=== PATIENT | female | born 1995 | race Caucasian/White ===

== ENCOUNTER 2020-08-10 11:00 | Observation (INO) | payer MEDICAID, SELFPAY ==
[~2020-08-10] VITALS: Ht 157.5 cm; Wt 69.9 kg
[2020-08-10] MEDS ORDERED: NACL 0.9% 1,000 ML IV SCH (12:05)
== END 2020-08-10 15:30 | disposition home or self-care (01) ==
LOC: MLD 11:00
PROVIDERS: ADMIT Obstetrics & Gynecology; ATTEND Obstetrics & Gynecology
DX: O26.893 Other specified pregnancy related conditions, third trimester (principal); Z20.828 Contact with and (suspected) exposure to other viral communicable diseases; R10.9 Unspecified abdominal pain; R07.89 Other chest pain; Z3A.35 35 weeks gestation of pregnancy
CPT/HCPCS: 59025; 81000; 87426; 93005; 96365; G0378; J0696; J7060

== ENCOUNTER 2020-08-21 10:29 | Observation (INO) | payer MEDICAID ==
[~2020-08-21] VITALS: Ht 157.5 cm; Wt 69.9 kg
[2020-08-21] MEDS ORDERED: LACTATED RINGERS 1,000 ML IV SCH (11:00)
[2020-08-21] MEDS ORDERED: MORPHINE SULFATE 4 MG/ML SYR IVP SCH (11:15)
[2020-08-21 11:32] VITALS: BP 103/67
== END 2020-08-21 15:30 | disposition home or self-care (01) ==
LOC: MFCC 10:29
PROVIDERS: ADMIT Obstetrics & Gynecology; ATTEND Obstetrics & Gynecology
DX: O26.893 Other specified pregnancy related conditions, third trimester (principal); R10.9 Unspecified abdominal pain; O99.891 Other specified diseases and conditions complicating pregnancy; M54.9 Dorsalgia, unspecified; Z3A.37 37 weeks gestation of pregnancy
CPT/HCPCS: 59025; 81000; 96361; 96374; G0378; J2270; J7120

== ENCOUNTER 2020-08-29 01:46 | Inpatient (IN) | payer MEDICAID, SELFPAY ==
[2020-08-29] MEDS ORDERED: LACTATED RINGERS 1,000 ML IV SCH (02:45)
[2020-08-29] MEDS ORDERED: OXYTOCIN 10 UNITS/ML VIAL IM SCH (02:45)
[2020-08-29] MEDS ORDERED: METHYLERGONOVINE 0.2 MG/ML AMP IM PRN (02:45)
[2020-08-29] MEDS ORDERED: MORPHINE SULFATE 2 MG/ML SYR IVP PRN (02:45)
[2020-08-29] MEDS ORDERED: CARBOPROST 250 MCG/ML AMP IM PRN (02:45)
[2020-08-29 03:36] LABS: APPEARANCE,URINE CLEAR (CLEAR); BILIRUBIN,URINE NEGATIVE (NEGATIVE); BLOOD, URINE NEGATIVE (NEGATIVE); COLOR,URINE YELLOW (YELLOW); LEUKOCYTE ESTERASE ,URINE 2+ (NEGATIVE); NITRITE, URINE NEGATIVE (NEGATIVE); UGLUCOSE NEGATIVE (NEGATIVE)
[2020-08-29 03:40] LABS: BASOPHILS % (AUTO) 0.6 % (0.0-2.0); EOSINOPHILS # (AUTO) 0.1 K/uL (0-0.4); HEMATOCRIT 29.5 % (36-48); HEMOGLOBIN 9.8 g/dL (12.0-16.0); LYMPHOCYTES # (AUTO) 1.7 K/uL (2.5-16.5); LYMPHOCYTES % (AUTO) 24.8 % (20.5-51.1); MEAN CORPUSCULAR HEMOGLOBIN 27 pg (27-31); MEAN CORPUSCULAR HGB CONC 33 g/dL (33-37); MEAN CORPUSCULAR VOLUME 81.6 fL (80-94); MONOCYTES # (AUTO) 0.5 K/uL (0.8-1.0); MONOCYTES % (AUTO) 7.3 % (1.7-9.3); NEUTROPHILS # (AUTO) 4.6 K/uL (1.8-7.7); NEUTROPHILS % (AUTO) 66.3 % (42.2-75.2); PLATELET COUNT (AUTO) 132 K/uL (140-450); RED BLOOD CELL COUNT(AUTO) 3.61 MIL/uL (4.20-5.40); RED CELL DISTRIBUTION WIDTH 15.5 % (11.6-13.7)
[2020-08-29 03:46] LABS: ANION GAP 17.3 (8-16); CARBON DIOXIDE 21.9 mmol/L (21-32); CREATININE 0.5 mg/dL (0.6-1.3); POTASSIUM 4.2 mmol/L (3.5-5.1)
[2020-08-29] MEDS ORDERED: MORPHINE SULFATE 10 MG/ML VIAL ONE (03:46)
[2020-08-29 03:52] LABS: ALBUMIN 2.9 g/dL (3.4-5.0); TOTAL BILIRUBIN 0.6 mg/dL (0.0-1.0)
[2020-08-29 03:55] VITALS: BP 109/64
[2020-08-29 04:00] LABS: RBC,URINE 0-5 /HPF (0-5)
== END 2020-08-29 09:20 | disposition home or self-care (01) | DRG 566 ==
LOC: MLD 01:46 → OBSVTOIN 01:46 → MFCC 02:38
PROVIDERS: ADMIT Obstetrics & Gynecology; ATTEND Obstetrics & Gynecology
DX: O62.4 Hypertonic, incoordinate, and prolonged uterine contractions (principal); Z20.828 Contact with and (suspected) exposure to other viral communicable diseases; Z3A.37 37 weeks gestation of pregnancy
CPT/HCPCS: 36415; 80053; 81001; 85025; 86592; 86886; 86900; 86901; 87086; J2270

== ENCOUNTER 2020-08-31 17:48 | Inpatient (IN) | payer MEDICAID, SELFPAY ==
[~2020-08-31] VITALS: Ht 157.5 cm; Wt 65.8 kg
[2020-08-31] MEDS ORDERED: METHYLERGONOVINE 0.2 MG/ML AMP IM PRN (18:00)
[2020-08-31] MEDS ORDERED: CARBOPROST 250 MCG/ML AMP IM PRN (18:00)
[2020-08-31 18:29] LABS: BASOPHILS % (AUTO) 0.4 % (0.0-2.0); EOSINOPHILS # (AUTO) 0.1 K/uL (0-0.4); EOSINOPHILS % (AUTO) 1.1 % (0.0-4.0); HEMATOCRIT 29.5 % (36-48); LYMPHOCYTES # (AUTO) 1.4 K/uL (2.5-16.5); LYMPHOCYTES % (AUTO) 21.5 % (20.5-51.1); MEAN CORPUSCULAR HEMOGLOBIN 27 pg (27-31); MEAN CORPUSCULAR HGB CONC 34 g/dL (33-37); MONOCYTES # (AUTO) 0.4 K/uL (0.8-1.0); MONOCYTES % (AUTO) 6.4 % (1.7-9.3); NEUTROPHILS # (AUTO) 4.7 K/uL (1.8-7.7); NEUTROPHILS % (AUTO) 70.6 % (42.2-75.2); PLATELET COUNT (AUTO) 124 K/uL (140-450); RED BLOOD CELL COUNT(AUTO) 3.69 MIL/uL (4.20-5.40); RED CELL DISTRIBUTION WIDTH 15.9 % (11.6-13.7); WHITE BLOOD COUNT (AUTO) 6.7 K/uL (4.8-10.8)
[2020-08-31 18:36] VITALS: BP 117/70
[2020-08-31 18:45] LABS: ALBUMIN 2.9 g/dL (3.4-5.0); ANION GAP 15.4 (8-16); CARBON DIOXIDE 22.3 mmol/L (21-32); CREATININE 0.4 mg/dL (0.6-1.3); POTASSIUM 3.7 mmol/L (3.5-5.1); TOTAL BILIRUBIN 0.6 mg/dL (0.0-1.0)
[2020-08-31 19:21] LABS: APPEARANCE,URINE CLEAR (CLEAR); BILIRUBIN,URINE NEGATIVE (NEGATIVE); BLOOD, URINE NEGATIVE (NEGATIVE); COLOR,URINE YELLOW (YELLOW); LEUKOCYTE ESTERASE ,URINE 1+ (NEGATIVE); NITRITE, URINE NEGATIVE (NEGATIVE); UGLUCOSE NEGATIVE (NEGATIVE)
[2020-08-31] MEDS ORDERED: AMPICILLIN 2,000 MG in NACL 0.9% MINI-BAG PLUS 100 ML IV SCH (19:30)
[2020-08-31 19:33] LABS: RBC,URINE 0-5 /HPF (0-5)
[2020-08-31] MEDS: LACTATED RINGERS 1,000 ML IV SCH (19:55)
[2020-08-31] MEDS ORDERED: AMPICILLIN 2,000 MG VIAL ONE (19:57)
[2020-08-31] MEDS ORDERED: MISOPROSTOL 25 MCG TAB VG SCH (20:00)
[2020-08-31] MEDS ORDERED: fentaNYL citrate 0.05 MG/ML VIAL IVP PRN (20:20)
[2020-08-31] MEDS ORDERED: PROMETHAZINE 25 MG/ML VIAL IVP PRN (20:20)
[2020-08-31] MEDS ORDERED: AMPICILLIN 1,000 MG VIAL ONE (23:26)
[2020-08-31] MEDS ORDERED: OXYTOCIN 20 UNITS in LACTATED RINGERS 1,000 ML IV SCH (23:45)
[2020-09-01] MEDS ORDERED: AMPICILLIN 1,000 MG VIAL ONE ×2 (03:25→07:35)
[2020-09-01] MEDS: AMPICILLIN 1,000 MG in NACL 0.9% MINI-BAG PLUS 50 ML IV SCH ×4 (04:03→08:02)
[2020-09-01] MEDS ORDERED: OXYTOCIN 20 UNITS/LR PREMIX 1,000 ML IV ONE (05:20)
[2020-09-01] MEDS: LACTATED RINGERS 1,000 ML IV SCH ×2 (05:40→12:07)
--- NOTE | 2020-09-01 08:55 | NUR ---
PATIENT HAS BEEN SCREENED AND CATEGORIZED LOW NUTRITION RISK. PATIENT WILL BE SEEN WITHIN 7 DAYS OF ADMISSION. 09/07/[address]
[2020-09-01] MEDS ORDERED: ROPIVACAINE 0.2%/NS PREMIX 200 ML EPI ONE (12:11)
[2020-09-01] MEDS ORDERED: oxyCODONE/APAP 5/325 MG 1 TAB TAB PO PRN (16:20)
[2020-09-01] MEDS ORDERED: HYDROcodone/APAP 5/325 MG 1 TAB TAB PO PRN (16:20)
[2020-09-01] MEDS ORDERED: TEMAZEPAM 15 MG CAP PO PRN (16:20)
[2020-09-01] MEDS ORDERED: bisacodyL 10 MG SUPP RC PRN (16:20)
[2020-09-01] MEDS ORDERED: METHYLERGONOVINE 0.2 MG TAB PO PRN (16:20)
[2020-09-01] MEDS ORDERED: METHYLERGONOVINE 0.2 MG/ML AMP IM PRN (16:20)
[2020-09-01] MEDS ORDERED: OXYTOCIN 10 UNITS/ML VIAL IM PRN (16:20)
[2020-09-01] MEDS ORDERED: BENZOCAINE/MENTHOL 20%-0.5% 60 GM CAN TP PRN (16:20)
[2020-09-01] MEDS ORDERED: DOCUSATE SOD/SENNA 50/8.6 MG 1 TAB PO SCH (21:00)
[2020-09-01] MEDS: IBUPROFEN 800 MG TAB PO PRN (22:24)
[2020-09-02 05:31] LABS: HEMATOCRIT 27.2 % (36-48); HEMOGLOBIN 9.2 g/dL (12.0-16.0)
[2020-09-02] MEDS: IBUPROFEN 800 MG TAB PO PRN ×2 (08:09→17:50)
== END 2020-09-02 21:11 | disposition home or self-care (01) | DRG 560 ==
LOC: MFCC 17:48
PROVIDERS: ADMIT Obstetrics & Gynecology; ATTEND Obstetrics & Gynecology
PROC: 10D07Z6 Extraction of Products of Conception, Vacuum, Via Natural or Artificial Opening (ICD-10-PCS; principal; 2020-09-01)
PROC: 0UQGXZZ Repair Vagina, External Approach (ICD-10-PCS; 2020-09-01)
DX: O66.5 Attempted application of vacuum extractor and forceps (principal); O60.23X0 Term delivery with preterm labor, third trimester, not applicable or unspecified; Z37.0 Single live birth; Z3A.38 38 weeks gestation of pregnancy; O71.4 Obstetric high vaginal laceration alone; O99.12 Other diseases of the blood and blood-forming organs and certain disorders involving the immune mechanism complicating childbirth; D69.6 Thrombocytopenia, unspecified
CPT/HCPCS: 36415; 51702; 59200; 80053; 81001; 85018; 85025; 86592; 87086; 87653-90; J0290; J2550; J2590; J2795; J3010; J7120

== ENCOUNTER 2020-12-16 05:32 | Day surgery (SDC) | payer MEDICAID, SELFPAY ==
[2020-12-14 11:19] LABS: BASOPHILS % (AUTO) 0.7 % (0.0-2.0); EOSINOPHILS # (AUTO) 0.1 K/uL (0-0.4); EOSINOPHILS % (AUTO) 1.7 % (0.0-4.0); HEMATOCRIT 38.8 % (36-48); HEMOGLOBIN 13.2 g/dL (12.0-16.0); LYMPHOCYTES # (AUTO) 2.1 K/uL (2.5-16.5); LYMPHOCYTES % (AUTO) 40.4 % (20.5-51.1); MEAN CORPUSCULAR HEMOGLOBIN 29 pg (27-31); MEAN CORPUSCULAR HGB CONC 34 g/dL (33-37); MEAN CORPUSCULAR VOLUME 84.9 fL (80-94); MONOCYTES # (AUTO) 0.3 K/uL (0.8-1.0); NEUTROPHILS # (AUTO) 2.7 K/uL (1.8-7.7); NEUTROPHILS % (AUTO) 51.2 % (42.2-75.2); PLATELET COUNT (AUTO) 185 K/uL (140-450); RED BLOOD CELL COUNT(AUTO) 4.57 MIL/uL (4.20-5.40); RED CELL DISTRIBUTION WIDTH 16.3 % (11.6-13.7); WHITE BLOOD COUNT (AUTO) 5.2 K/uL (4.8-10.8)
[2020-12-14 11:33] LABS: ALBUMIN 4.1 g/dL (3.4-5.0); ANION GAP 10.1 (8-16); CARBON DIOXIDE 30.1 mmol/L (21-32); CREATININE 0.6 mg/dL (0.6-1.3); POTASSIUM 4.2 mmol/L (3.5-5.1); TOTAL BILIRUBIN 1.3 mg/dL (0.0-1.0)
[~2020-12-16] VITALS: Ht 157.5 cm; Wt 63.0 kg
[2020-12-16] MEDS ORDERED: BUPIVACAINE-MPF 0.25% 30 ML VIAL INJ ONE (07:19)
[2020-12-16] MEDS ORDERED: NEOSTIGMINE 1:1000 10 MG/10 ML VIAL ONE (07:30)
[2020-12-16] MEDS ORDERED: SEVOFLURANE 250 ML BTL INH ONE (07:30)
[2020-12-16] MEDS ORDERED: DEXAMETHASONE 4 MG/ML VIAL ONE (07:30)
[2020-12-16] MEDS ORDERED: KETOROLAC 30 MG/ML VIAL ONE (07:30)
[2020-12-16] MEDS ORDERED: METOCLOPRAMIDE 10 MG/2 ML INJ VIAL ONE (07:30)
[2020-12-16] MEDS ORDERED: MIDAZOLAM 2 MG/2 ML VIAL ONE (07:30)
[2020-12-16] MEDS ORDERED: fentaNYL citrate 0.05 MG/ML VIAL ONE (07:30)
[2020-12-16] MEDS ORDERED: GLYCOPYRROLATE 0.2 MG/ML VIAL ONE (07:30)
[2020-12-16] MEDS ORDERED: PROPOFOL 200 MG/20 ML VIAL IV ONE (07:30)
[2020-12-16] MEDS ORDERED: LIDOCAINE 2% 100 MG/5 ML SYR IVP ONE (07:30)
[2020-12-16] MEDS ORDERED: SUCCINYLCHOLINE CHLORIDE 200 MG/10 ML VIAL IVP ONE (07:30)
== END 2020-12-16 09:45 | disposition home or self-care (01) ==
LOC: MOR 05:32 → MMU 06:32 → MOR 09:45
PROVIDERS: ATTEND Obstetrics & Gynecology
DX: Z30.2 Encounter for sterilization (principal)
CPT/HCPCS: 36415; 58670; 80053; 81025; 82374; 84702; 85025; 87426; J0330; J1100; J1885; J2001; J2250; J2704; J2710; J2765; J3010; J3490; J7120

== ENCOUNTER 2020-12-16 21:25 | Emergency (ER) | payer MEDICAID, SELFPAY ==
[~2020-12-16] VITALS: Ht 157.5 cm; Wt 63.0 kg
--- NOTE | 2020-12-16 21:30 | NUR ---
TO BED AMBULATORY
[2020-12-16 21:31] VITALS: BP 100/61
--- NOTE | 2020-12-16 21:48 | NUR ---
25 Y/O F BIB SELF FROM HOME, C/O ABD PAIN 6/10 [facility] STARTED AROUND 0800 AFTER BILATERAL TUBE LIGATION. UPON INSPECTION, PT HAS BRIGHT RED BLEEDING ON SITE. NO DISCHARGE, EDEMA OR SWELLING OF SITE. PT STATES SHE HAS NAUSEA, BUT NO VOMITING. LMP: 12/11/20. G3 T2 L3. NKA. NO PMH. PT IS A&OX4, ABLE TO AMBULATE. DENIES SYMPTOMS OR CONTACT WITH PERSONS POSITIVE WITH COVID. CLEANED AROUND SITE WITH NS FLUSH, DRESSED WITH STERILE DRESSING.
--- NOTE | 2020-12-16 23:10 | NUR ---
ISLAND DRESSING PLACED OVER WOUND ON PT ABDOMEN
--- NOTE | 2020-12-16 23:10 | NUR ---
EMT IN ROOM PLACING DRESSING OVER SITE.
[2020-12-16 23:19] VITALS: BP 100/61
--- NOTE | 2020-12-16 23:19 | NUR ---
Patient discharged with v/s stable. Written and verbal after care instructions given and explained. Patient verbalized understanding. Ambulatory with steady gait. All questions addressed prior to discharge. Advised to follow up with PMD.
== END 2020-12-16 23:19 | disposition home or self-care (01) ==
LOC: MED 21:25
DX: L76.22 Postprocedural hemorrhage of skin and subcutaneous tissue following other procedure (principal)
CPT/HCPCS: 99281; 99282